=== PATIENT | female | born 1960 ===

== ENCOUNTER → 2020-10-20 | Outpatient (CLI) | payer OTHER ==
[~2020-10-20] MED LIST: METF500 PO
[2020-10-21 10:50] LABS: Candida species (DNA Probe) Negative (NEGATIVE); G. vaginalis (DNA Probe) Positive (NEGATIVE); T. vaginalis (DNA Probe) Negative (NEGATIVE)
== END ==
LOC: LAB 13:12 → LAB SHORT 13:12
PROVIDERS: Nurse Practitioner Family
DX: N76.0 Acute vaginitis (principal)
CPT/HCPCS: 87070; 87086; 87205; 87480; 87510; 87660

== ENCOUNTER → 2021-06-26 | Outpatient (CLI) | payer OTHER | END | disposition home or self-care (01) | LOC: LAB SHORT 09:48 | DX: J02.9 Acute pharyngitis, unspecified (principal) | CPT/HCPCS: 87081 ==

== ENCOUNTER 2022-04-22 07:51 | Day surgery (SDC) | payer OTHER ==
[~2022-04-22] VITALS: Ht 162.6 cm; Wt 82.1 kg
[2022-04-22] MEDS ORDERED: ATOR40TA (08:22)
[2022-04-22] MEDS ORDERED: CELE200 (08:22)
[2022-04-22] MEDS ORDERED: ATEN100 (08:23)
[2022-04-22] MEDS ORDERED: LISI20 (08:23)
[2022-04-22] MEDS ORDERED: TRAZ100 (08:24)
[2022-04-22] MEDS ORDERED: ASPI81CH (08:24)
[2022-04-22] MEDS ORDERED: CATAPRES-TTS 11 EAC1 (08:24)
[2022-04-22] MEDS ORDERED: PREG150 (08:25)
[2022-04-22] MEDS ORDERED: CYCL10 (08:25)
[2022-04-22] MEDS ORDERED: HYDHCL25 (08:25)
== END 2022-04-22 10:08 | disposition home or self-care (01) ==
LOC: ORSCSDS 07:51
PROVIDERS: Student in an Organized Health Care Education/Training Program
PROC: 0DB68ZX Excision of Stomach, Via Natural or Artificial Opening Endoscopic, Diagnostic (ICD-10-PCS; principal; 2022-04-22 09:15)
DX: K74.69 Other cirrhosis of liver (principal); R74.8 Abnormal levels of other serum enzymes; R10.13 Epigastric pain; K29.70 Gastritis, unspecified, without bleeding; Z87.891 Personal history of nicotine dependence; E11.9 Type 2 diabetes mellitus without complications; E78.5 Hyperlipidemia, unspecified; I10 Essential (primary) hypertension; Z79.82 Long term (current) use of aspirin; Z79.899 Other long term (current) drug therapy
CPT/HCPCS: 82947; 88305; 88342; J2704; J7120

== ENCOUNTER → 2022-05-10 | Outpatient (CLI) | payer OTHER ==
[~2022-05-10] MED LIST changes: +ASPI81CH; +ATEN100; +ATOR40TA; +CATAPRES-TTS 11 EAC1; +CELE200; +CYCL10; +HYDHCL25; +LISI20; +PREG150; +TRAZ100
[2022-05-12 16:08] LABS: COTININE Negative ng/mL (Cutoff=300)
== END ==
LOC: LAB 11:56 → LAB SHORT 11:56
PROVIDERS: Orthopaedic Surgery
DX: Z02.83 Encounter for blood-alcohol and blood-drug test (principal); Z87.891 Personal history of nicotine dependence

== ENCOUNTER 2022-09-07 07:52 | Day surgery (SDC) | payer OTHER ==
[~2022-09-07] VITALS: Ht 162.6 cm; Wt 81.7 kg
[~2022-09-07 07:52] MED LIST changes: -ASPI81CH; +ASPI81CH PO; -ATEN100; +ATEN100 PO; -ATOR40TA; +ATOR40TA PO; +CATAPRES0.1 MG; +CATAPRES0.1 MG PO; -CELE200; +CELE200 PO; -CYCL10; +CYCL10 PO; -HYDHCL25; +HYDHCL25 PO; -LISI20; +LISI20 PO; -PREG150; +PREG150 PO; -TRAZ100; +TRAZ100 PO
[2022-09-07] MEDS ORDERED: OMEP20ER PO (08:39)
--- NOTE | 2022-09-07 13:14 | NUR ---
PT ARRIVED TO THE UNIT AT 1300. PT DENIES PAIN. PT STILL HAS DECREASED MOVEMENT AND SENSATION R/T SPINAL ANESTHESIA. SPINAL ANESTHESIA SITE WNL. PEDAL AND TIBIAL PULSES EQUAL BILATERALLY. TEMPURATURE AND MOVEMENT EQUAL TO BLE. FLUIDS PROVIDED AND PT EDUCATED TO EAT AND DRINK SLOWLY. WILL CONTINUE TO MONITOR.
--- NOTE | 2022-09-07 16:24 | NUR ---
SHIFT SUMMARY PT IS POD#0 FROM R [facility] WITH DR. MALDONADO. PAIN MANAGED WITH PO PAIN MEDICATION. PT WORKED WITH THERAPY AND IS A 1 PERSON ASSIST WHEN OOB. PT TOLERATING PO, PT WAS NAUSEATED BUT ZOFRAN EFFECTIVE TO RESOLVE NAUSEA. SHE HAS BEEN ABLE TO VOID.
--- NOTE | 2022-09-07 16:46 | NUR ---
ASSUMED CARE OF PT RESTING IN BED, APPEARS COMFORTABLE. STATES SHE FEELS PAIN PILL IS STARTING TO WORK. AQUACEL & SPINAL SITE WNL.
--- NOTE | 2022-09-07 18:33 | NUR ---
SHIFT SUMMARY SIINCE ASSUMING CARE, PT HAS DONE WELL BUT STILL HAS LINGERING NAUSEA. NO EMESIS. PAIN WELL CONTROLLED.
--- NOTE | 2022-09-08 04:17 | NUR ---
SHIFT SUMMARY NO ACUTE CHANGES. PT RESTED WELL T/O SHIFT. DRESSING TO R HIP REMAINS CDI WITH POLAR PACK IN PLACE. 2 ROXICODONE/TYLENOL/TORADOL FOR PAIN MANAGEMENT. 1 ASSIST WITH FWW + GB TO BRP. CLARITA PO. USES CALL LIGHT APPROPRIATELY.
[2022-09-08 05:43] LABS: BASOPHILS ABSOLUTE AUTO 0.01 K/mm3 (0.00-0.23); BASOPHILS PERCENT AUTO 0 % (0-2); EOSINOPHILS PERCENT AUTO 0 % (0-6); Hematocrit 30.6 % (33.0-51.0); Hemoglobin 10.1 g/dL (11.5-16.0); IMMATURE GRAN ABSOLUTE AUTO 0.04 K/mm3 (0.00-0.10); IMMATURE GRAN PERCENT AUTO 0 % (0-1); LYMPHOCYTES ABSOLUTE AUTO 2.38 K/mm3 (0.84-5.20); LYMPHOCYTES PERCENT AUTO 18 % (21-46); MONOCYTES PERCENT AUTO 9 % (4-13); Mean Corpuscular HGB 30.5 pg (26.0-34.0); Mean Corpuscular Volume 92 fL (80-100); Mean Platelet Volume 11.2 fL (9.1-12.4); NEUTROPHILS PERCENT AUTO 72 % (41-73); Platelet Count 194 K/mm3 (150-400); RDW Coefficient Variation 12.6 % (11.7-14.2); RDW Standard Deviation 42.3 fL (35.1-46.3); Red Blood Cell Count 3.31 M/mm3 (3.80-5.20); White Blood Cell Count 13.13 K/mm3 (4.00-11.30)
[2022-09-08 05:56] LABS: Bun/Creatinine Ratio 23.2 (12.0-20.0); Calcium, Blood 8.6 mg/dL (8.5-10.1); Creatinine, Blood 1.38 mg/dL (0.40-1.00); Potassium, Blood 4.9 mmol/L (3.5-5.5)
[2022-09-08] MEDS ORDERED: Percocet 5-3251 EACH PO (10:01)
--- NOTE | 2022-09-08 11:33 | NUR ---
CLEARED THERAPY BUT WANTS TO WAIT FOR TO ARRIVE TO DISCUSS DC INSTRUCTIONS
--- NOTE | 2022-09-08 13:58 | NUR ---
DISCHARGE PT HAS CLEARED THERAPY. PAIN WELL CONTROLLED. EATING, DRINKING, & VOIDING WELL. DRSGS, SCRIPT, & POLAR PACK SENT w/ PT. ESCORTED OUT VIA W/C. NO LONGER FEELS DIZZY.
== END 2022-09-08 13:51 | disposition home or self-care (01) ==
LOC: ORSCMMR 07:52 → ORD 11:00 → ORSCMMR 11:00 → SURS 13:04 → ORSCMMR 09-08 13:51 → ORD 09-28 09:15
PROVIDERS: Orthopaedic Surgery
PROC: 0SR90JZ Replacement of Right Hip Joint with Synthetic Substitute, Open Approach (ICD-10-PCS; principal; 2022-09-07 09:15)
DX: M16.11 Unilateral primary osteoarthritis, right hip (principal); K74.60 Unspecified cirrhosis of liver; I10 Essential (primary) hypertension; E11.9 Type 2 diabetes mellitus without complications; Z87.891 Personal history of nicotine dependence; Z79.899 Other long term (current) drug therapy; Z79.84 Long term (current) use of oral hypoglycemic drugs; Z79.82 Long term (current) use of aspirin
CPT/HCPCS: 36415; 72170; 80048; 82947; 85025; 94760; 97110; 97116; 97162; 97530; A9270; C1776; J0171; J0690; J0735; J1100; J1815; J1885; J2250; J2370; J2405; J2704; J2765; J2795; J3010; J7120

== ENCOUNTER 2024-05-01 13:37 | Day surgery (SDC) | payer MEDICARE, OTHER ==
[~2024-05-01] VITALS: Ht 162.6 cm; Wt 83.9 kg
[~2024-05-01 13:37] MED LIST changes: +Atropine Sulfate 0.1 MG/ML 10ML SYR ONE; +Glycopyrrolate 0.2 MG/ML 1MLVIAL ONE; +Lactated Ringer's 1,000 ML IV ONE; +Lidocaine 2% 5 ML SDV ONE; +Lidocaine HCl/Pf 1% 5 ML VIAL ONE; +OMEP20ER PO; +Ondansetron HCl 2 MG / ML 2ML Vial ONE; +Percocet 5-3251 EACH PO; +ePHEDrine Sulfate 50 MG/ML 1ML Injection ONE
[2024-05-01] MEDS ORDERED: PRAM.125 (14:29)
[2024-05-01] MEDS ORDERED: CETI5 (14:30)
[2024-05-01] MEDS ORDERED: Lactated Ringer's 1,000 ML IV ONE (14:35)
[2024-05-01] MEDS ORDERED: propofoL 50 ML IV ONE ×2 (14:41→14:56)
[2024-05-01 15:45] VITALS: BP 104/64
== END 2024-05-01 15:53 | disposition home or self-care (01) ==
LOC: ORSCSDS 13:37
PROVIDERS: Internal Medicine Gastroenterology
PROC: 0DBP8ZX Excision of Rectum, Via Natural or Artificial Opening Endoscopic, Diagnostic (ICD-10-PCS; principal; 2024-05-01 15:15)
PROC: 0DBL8ZX Excision of Transverse Colon, Via Natural or Artificial Opening Endoscopic, Diagnostic (ICD-10-PCS; principal; 2024-05-01 15:15)
PROC: 0DBN8ZX Excision of Sigmoid Colon, Via Natural or Artificial Opening Endoscopic, Diagnostic (ICD-10-PCS; principal; 2024-05-01 15:15)
PROC: 0DBM8ZX Excision of Descending Colon, Via Natural or Artificial Opening Endoscopic, Diagnostic (ICD-10-PCS; principal; 2024-05-01 15:15)
PROC: 0DBK8ZX Excision of Ascending Colon, Via Natural or Artificial Opening Endoscopic, Diagnostic (ICD-10-PCS; principal; 2024-05-01 15:15)
DX: Z12.11 Encounter for screening for malignant neoplasm of colon (principal); D12.2 Benign neoplasm of ascending colon; D12.3 Benign neoplasm of transverse colon; D12.4 Benign neoplasm of descending colon; D12.5 Benign neoplasm of sigmoid colon; D12.8 Benign neoplasm of rectum; K62.1 Rectal polyp; I10 Essential (primary) hypertension; E11.9 Type 2 diabetes mellitus without complications; Z79.899 Other long term (current) drug therapy; Z79.82 Long term (current) use of aspirin
CPT/HCPCS: 82947; 88305; J0461; J2001; J2003; J2405; J2704; J7120